=== PATIENT | female | born 1995 | race Caucasian/White ===

== ENCOUNTER 2020-09-06 19:18 | Emergency (ER) | payer OTHER ==
[2020-09-06] MEDS ORDERED: IBUPROFEN800 MG PO (20:32)
[2020-09-06] MEDS ORDERED: NORCO 5-325 TA1 EACH PO (20:32)
[2020-09-06] MEDS ORDERED: SILVADENE20 GM TOP (20:32)
[2020-09-06] MEDS ORDERED: CEPHALEXIN500 M1 PO (20:38)
== END 2020-09-06 21:10 | disposition home or self-care (01) ==
LOC: FER 19:18
DX: T24.202A Burn of second degree of unspecified site of left lower limb, except ankle and foot, initial encounter (principal); T31.0 Burns involving less than 10% of body surface; Z23 Encounter for immunization; X12.XXXA Contact with other hot fluids, initial encounter; Y92.009 Unspecified place in unspecified non-institutional (private) residence as the place of occurrence of the external cause
CPT/HCPCS: 90471; 90715